=== PATIENT | male | born 1950 | race Two or more races ===

== ENCOUNTER 2018-07-25 00:44 | Inpatient (IN) | payer MEDICARE, OTHER ==
[~2018-07-25] VITALS: Ht 167.6 cm; Wt 54.4 kg
--- NOTE | 2018-07-25 02:53 | NUR ---
GPS ADMISSION NOTE, [facility]. PATIENT ARRIVED ON THIS UNIT AT 0253 VIA STRETCHER WITH 2 EMT ESCORTS. PATIENT ADMITTED ON A 5150 HOLD FOR GD. PER HOLD PATIENT WAS IN E.R. WAITING ROOM REFUSING TO SPEAK AND REFUSING MEDICAL TREATMENT. PATIENT PRESENTS WITH PARANOIA AND DELUSIONS. PATIENT CAN NOT GIVE VIABLE PLAN FOR SELF CARE AT THIS TIME. THE 5150 WAS REVIEWED AND THE DOCUMENTATION IN THE 5150 HOLD APPEARS TO REFLECT THE PRESENTATION OF THE PATIENT. UPON FACE TO FACE ASSESSMENT PATIENT IS CURRENTLY LYING IN BED AWAKE, PATIENT HAS A COMPLAINT OF BILATERAL HEEL PAIN AT 2 OUT OF 10 ON THE PAIN SCALE. PATIENT IS TAKING ORAL PAIN MEDICATION FOR THIS PAIN. PATIENT IS DISPLAYING NO S/S OF APPARENT DISTRESS. PATIENT BREATHING IS UNLABORED WITH EQUAL RISE AND FALL OF THE CHEST. PATIENT IS ALERT AND ORIENTATED X 3 ON ROOM AIR. PATIENT ASSISTED WITH TURING AND REPOSITIONING Q2HR AND PRN FOR COMFORT AND CIRCULATION. PATIENT HAS NO NEEDS AT THIS TIME. PATIENT IS NOTED TO BEING DEPRESSED, DISHEVELED, DISORGANIZED, ANXIOUS, COOPERATIVE, AND NEEDS REDIRECTION. PATIENT DENIES SUICIDE IDEATIONS AND HOMICIDAL IDEATIONS AT THIS TIME. PATIENT IS UNDER THE PSYCHIATRIC CARE OF DR. BURT AND THE MEDICAL CARE OF DR DIAZ. PATIENT BELONGINGS WERE INVENTORIED AND CHECKED FOR CONTRABAND. ALL CONTRABAND REMOVED AND STORED IN PATIENT HALLWAY LOCKER. PATIENT ADVANCED DIRECTIVES PREFERENCE, IMMUNIZATIONS QUESTIONER, NECESSARY PAPERWORK, AND SKIN ASSESSMENT COMPLETED. PATIENT ORIENTATED TO ROOM, FLOOR, AND STAFF WITH ALL QUESTIONS ANSWERED. PATIENT EDUCATED ON THE USE OF THE CALL PICKETT. PATIENT BED SIDE RAILS ARE UP X 2 FOR SAFETY. PATIENT BED IS LOCKED, LOW AND I WILL CONTINUE TO MONITOR THIS PATIENT Q 15 MIN WITH THE HELP OF STAFF TO MAINTAIN SAFETY.
[2018-07-25] MEDS ORDERED: MAG HYDROX/AL HYDROX/SIMETH 30 ML UDC PO PRN (03:00)
[2018-07-25] MEDS ORDERED: MAGNESIUM HYDROXIDE 30 ML UDC PO PRN (03:00)
[2018-07-25] MEDS ORDERED: PREG50CA PO (03:40)
[2018-07-25] MEDS ORDERED: THYR60TA2 PO (03:40)
[2018-07-25] MEDS ORDERED: METF-442 PO (05:55)
[2018-07-25 08:00] VITALS: BP 139/74
[2018-07-25] MEDS ORDERED: LORAZEPAM 0.5 MG TABLET PO PRN (09:00)
[2018-07-25] MEDS: NICOTINE PATCH (21MG) 21 MG PATCH.TD24 TD SCH (09:13)
[2018-07-25] MEDS: METFORMIN 500 MG TABLET PO SCH ×2 (11:21→16:53)
[2018-07-25] MEDS: SERTRALINE HCL 25 MG TABLET PO SCH (11:30)
[2018-07-25] MEDS: THYROID 30 MG TABLET PO SCH (11:30)
[2018-07-25] MEDS: PREGABALIN 25 MG CAPSULE PO SCH ×2 (12:39→16:53)
[2018-07-25 16:00] VITALS: BP 144/81
--- NOTE | 2018-07-25 16:15 | NUR ---
Initial Discharge Plan: Pt states that he resides with his girlfriend on his brother, Omer Donnelly'ray (phone number not available) property located at [address] [place] [address]; ([phone]). Per pt, he is not sure about his discharge plan. SW will work with the pt and the MD regarding appropriate discharge planning. SW will form a safe and proper discharge.
--- NOTE | 2018-07-25 16:15 | NUR ---
SW called the pt's brother, Omer Donnelly ([phone]), and the phone number was not valid.
[2018-07-25 20:00] VITALS: BP 132/79
--- NOTE | 2018-07-25 20:00 | NUR ---
GPS/RN OPENING NOTES RECEIVED PATIENT IN BED, RESTING COMFORTABLY I BED, OBSERVE NO GUARDING OR GRIMACE, NO PAIN VERBALIZED OR REPORTED, RESPIRATIONS EVEN AND UNLABORED. WILL MONITOR AND ATTEND TO NEEDS AT ALL TIMES. BED IN LOCK POSITION. SIDE RAILS 2X UP.
[2018-07-25 20:09] VITALS: BP 132/79
[2018-07-25] MEDS: OLANZAPINE 2.5 MG TABLET PO SCH (21:30)
--- NOTE | 2018-07-25 21:37 | NUR ---
GPS/RN NOTES PATIENT ASLEEP AND REFUSE TO TAKE MEDS AT THIS TIME .
[2018-07-26] MEDS ORDERED: DEXTROSE 50%-WATER 50 ML DISP.SYRIN IV PRN (00:30)
[2018-07-26] MEDS: ACETAMINOPHEN 325 MG TABLET PO PRN (06:25)
--- NOTE | 2018-07-26 06:28 | NUR ---
GPS/RN NOTES PATIENT AWAKE AND REPORTED TO HAVE PAIN IN LEGS, REPORTED HE HAS DIABETIC NEUROPATHY. INFORM HE HAS TYLENOL 650MG TO RELIEVE PAIN AND AGREED TO HAVE IT, WILL INFORM AM FOR CONCERN.
[2018-07-26 07:13] LABS: BASOPHILS % (AUTO) 0.3 % (0.0-2.0); EOSINOPHILS % (AUTO) 2.2 % (0.0-6.0); HEMATOCRIT 44 % (39-51); HEMOGLOBIN 14.2 g/dL (13.5-17.5); LYMPHOCYTES # (AUTO) 3.5 /CMM (0.8-4.8); MEAN CORPUSCULAR HEMOGLOBIN 30 PG (26.0-33.0); MEAN CORPUSCULAR HGB CONC 32 g/dl (31.0-36.0); MEAN CORPUSCULAR VOLUME 94 fL (80-96); MONOCYTES # (AUTO) 0.8 /CMM (0.1-1.30); MONOCYTES % (AUTO) 8.5 % (2.0-12.0); NEUTROPHILS # (AUTO) 5.1 /CMM (1.8-8.9); PLATELET COUNT (AUTO) 222 /CMM (150-450); RDW COEFFICIENT OF VARIATION 13.1 (11.5-15.0); RED BLOOD CELL COUNT(AUTO) 4.72 MIL/uL (4.5-6.0); WHITE BLOOD COUNT (AUTO) 9.6 K/uL (4.3-11.0)
[2018-07-26 07:38] LABS: CALCIUM, SERUM 8.6 mg/dL (8.5-10.1); CREATININE 0.9 mg/dL (0.6-1.3); MAGNESIUM 1.7 mg/dL (1.8-2.4); PHOSPHORUS 2.9 mg/dL (2.5-4.9)
[2018-07-26 07:42] LABS: CHOLESTEROL 226 mg/dL (<200); HDL CHOLESTEROL 57 mg/dL (40-60); LDL 159 mg/dL (0-99); TRIGLYCERIDES 102 mg/dL (30-150)
[2018-07-26] MEDS: BLOOD SUGAR DIAGNOSTIC 1 EACH STRIP IN SCH ×4 (07:57→22:02)
--- NOTE | 2018-07-26 07:57 | NUR ---
RN NOTE: ACCUCHECK AT 142. PATIENT REFUSED INSULIN
[2018-07-26 08:00] VITALS: BP 118/75
[2018-07-26] MEDS: NICOTINE PATCH (21MG) 21 MG PATCH.TD24 TD SCH (09:00)
[2018-07-26] MEDS: PREGABALIN 25 MG CAPSULE PO SCH ×3 (09:01→17:02)
[2018-07-26] MEDS: THYROID 30 MG TABLET PO SCH (09:01)
[2018-07-26] MEDS: METFORMIN 500 MG TABLET PO SCH ×2 (09:01→17:02)
[2018-07-26] MEDS: ATORVASTATIN 10 MG TABLET PO SCH (09:01)
[2018-07-26] MEDS: SERTRALINE HCL 25 MG TABLET PO SCH (09:01)
[2018-07-26] MEDS ORDERED: MAGNESIUM OXIDE 400 MG TABLET PO ONE (10:00)
--- NOTE | 2018-07-26 10:24 | NUR ---
RN-CO: DR ERAZO (ATM MECHANIC) MADE AWARE OF ATM MECHANIC CONSULT.
[2018-07-26 16:00] VITALS: BP 125/70
[2018-07-26 20:00] VITALS: BP 118/70
[2018-07-26] MEDS: OLANZAPINE 2.5 MG TABLET PO SCH (22:02)
[2018-07-27 08:00] VITALS: BP 128/77
[2018-07-27] MEDS: PREGABALIN 25 MG CAPSULE PO SCH ×3 (08:51→17:08)
[2018-07-27] MEDS: NICOTINE PATCH (21MG) 21 MG PATCH.TD24 TD SCH (08:51)
[2018-07-27] MEDS: BLOOD SUGAR DIAGNOSTIC 1 EACH STRIP IN SCH ×4 (08:51→22:16)
[2018-07-27] MEDS: THYROID 30 MG TABLET PO SCH (08:52)
[2018-07-27] MEDS: METFORMIN 500 MG TABLET PO SCH ×2 (08:52→17:08)
[2018-07-27] MEDS: SERTRALINE HCL 25 MG TABLET PO SCH (08:52)
--- NOTE | 2018-07-27 09:02 | NUR ---
GPS/RN PT TOOK AM MEDS REFUSED INSULIN COVERAGE
--- NOTE | 2018-07-27 14:53 | NUR ---
KELI called the pt's girlfriend, Umberto ([phone]), and informed her that the pt will be discharged by Monday according to the hearing swimming coach due to an appointment that he has for surgery. It was also discussed that the pt will be discharging with home health.
--- NOTE | 2018-07-27 14:58 | NUR ---
KELI called the pt's brother, Omer ([phone]), and clarified some details of the situation regarding the pt. The brother stated that the pt is being evicted from his property and was given a 30 Day Notice and that he is not willing to be involved in the discharge planning.
[2018-07-27 16:00] VITALS: BP 123/76
[2018-07-27] MEDS: ATORVASTATIN 10 MG TABLET PO SCH (21:40)
[2018-07-27] MEDS: OLANZAPINE 2.5 MG TABLET PO SCH (21:40)
[2018-07-27] MEDS: ACETAMINOPHEN 325 MG TABLET PO PRN (22:13)
[2018-07-27] MEDS: TEMAZEPAM 7.5 MG CAPSULE PO PRN (22:55)
[2018-07-28 00:42] VITALS: BP 143/82
[2018-07-28 08:00] VITALS: BP 175/84
[2018-07-28] MEDS: BLOOD SUGAR DIAGNOSTIC 1 EACH STRIP IN SCH ×4 (08:03→21:16)
[2018-07-28] MEDS: METFORMIN 500 MG TABLET PO SCH ×2 (08:55→17:21)
[2018-07-28] MEDS: NICOTINE PATCH (21MG) 21 MG PATCH.TD24 TD SCH ×2 (08:56→09:00)
[2018-07-28] MEDS: THYROID 30 MG TABLET PO SCH (08:56)
[2018-07-28] MEDS: SERTRALINE HCL 25 MG TABLET PO SCH (08:56)
[2018-07-28] MEDS: PREGABALIN 25 MG CAPSULE PO SCH ×3 (08:56→17:21)
--- NOTE | 2018-07-28 14:30 | NUR ---
EARLIER IN DAY PT. BECAME VERY ANXIOUS AND INSISTED VALUABLE ENVELOPE BE REMOVED FROM SAFE AND ALL MONIES REVIEWED WITH DISTRICT HOME ECONOMICS AGENT-THEN NEW ENVELOPE RETURNED TO SAFE.PT. COOPERATIVE AND CALMER AFTER THIS DONE.
[2018-07-28 16:00] VITALS: BP 118/88
[2018-07-28] MEDS: ACETAMINOPHEN 325 MG TABLET PO PRN ×2 (17:21→20:00)
--- NOTE | 2018-07-28 17:21 | NUR ---
GIVEN TYLENOL 650 MG PO FOR LT. FOOT PAIN.MEPILEX PATCH TO LT. HEEL.
[2018-07-28] MEDS: FIXODENT 1 EA TUBE MM PRN (17:48)
[2018-07-28 20:00] VITALS: BP 134/75
[2018-07-28] MEDS: TEMAZEPAM 7.5 MG CAPSULE PO PRN ×2 (20:29→21:19)
[2018-07-28] MEDS: ATORVASTATIN 10 MG TABLET PO SCH (21:16)
[2018-07-28] MEDS: OLANZAPINE 2.5 MG TABLET PO SCH (21:18)
--- NOTE | 2018-07-28 21:20 | NUR ---
ACCUCHECK 126 MG/DL, NO INSULIN DUE AT THIS TIME.
--- NOTE | 2018-07-28 21:21 | NUR ---
TEMAZEPAM 7.5 MG CAP 1 PO GIVEN FOR SLEEP PER PATIENT'S REQUEST
--- NOTE | 2018-07-28 21:43 | NUR ---
PATIENT C/O PAIN ON THE LEFT FOOT, TYLENOL IS NOT EFFECTIVE.AGED AND SPOKE TO DENTAL LABORATORY TECHNICIAN APPRENTICE RUPERT KOEHLER, NEW ORDER GIVEN FOR NORCO 5/325 MG TAB 1 PO Q 4 H PRN PAIN
[2018-07-28] MEDS ORDERED: HYDROCODONE/APAP 5/325MG 1 EACH TABLET PO PRN (22:00)
[2018-07-29] MEDS ORDERED: HYDROCODONE/APAP 5/325MG 1 EACH TABLET PO PRN (01:00)
--- NOTE | 2018-07-29 07:29 | NUR ---
BGL.170, REFUSED COVERAGE. EDUCATED R/T BGL MAINTENANCE, PT REMAINS REFUSING.
[2018-07-29] MEDS: BLOOD SUGAR DIAGNOSTIC 1 EACH STRIP IN SCH ×4 (07:39→21:38)
[2018-07-29 08:00] VITALS: BP 138/80
[2018-07-29] MEDS: THYROID 30 MG TABLET PO SCH (08:05)
[2018-07-29] MEDS: SERTRALINE HCL 25 MG TABLET PO SCH (08:06)
[2018-07-29] MEDS: PREGABALIN 25 MG CAPSULE PO SCH ×3 (08:06→16:30)
[2018-07-29] MEDS: ACETAMINOPHEN 325 MG TABLET PO PRN (08:06)
[2018-07-29] MEDS: NICOTINE PATCH (21MG) 21 MG PATCH.TD24 TD SCH (08:07)
[2018-07-29] MEDS: METFORMIN 500 MG TABLET PO SCH ×2 (08:10→16:30)
[2018-07-29] MEDS: FIXODENT 1 EA TUBE MM PRN (10:09)
[2018-07-29 16:00] VITALS: BP 139/86
[2018-07-29 20:34] VITALS: BP 143/76
[2018-07-29] MEDS: TEMAZEPAM 7.5 MG CAPSULE PO PRN (21:31)
[2018-07-29] MEDS: ATORVASTATIN 10 MG TABLET PO SCH (21:31)
[2018-07-29] MEDS: OLANZAPINE 2.5 MG TABLET PO SCH (21:31)
--- NOTE | 2018-07-29 21:31 | NUR ---
PRN RESTORIL GIVEN PATIENT REQUESTED TO GET RESTORIL FOR SLEEPLESSNESS, PRN RESTORIL GIVEN & WILL REASSESS FOR EFFECTIVENESS.
--- NOTE | 2018-07-29 22:37 | NUR ---
GPS RN NOTE PATIENT HAD RESTORIL REQUESTED BUT STILL AWAKE IN BED, STATED HE IS TRYING TO GO TO SLEEP. WILL MONITOR CLOSELY.
[2018-07-30] MEDS: ACETAMINOPHEN 325 MG TABLET PO PRN (03:36)
--- NOTE | 2018-07-30 03:44 | NUR ---
PRN TYLENOL GIVEN PATIENT HAD C/O MILD PAIN TO LEFT FOOT & WANTED TO TAKE TYLENOL. PRN TYLENOL GIVEN & WILL MONITOR FOR EFFECTIVENESS.
[2018-07-30] MEDS: BLOOD SUGAR DIAGNOSTIC 1 EACH STRIP IN SCH ×2 (07:30→12:00)
[2018-07-30 08:00] VITALS: BP 148/76
[2018-07-30] MEDS: PREGABALIN 25 MG CAPSULE PO SCH ×2 (08:51→12:08)
[2018-07-30] MEDS: METFORMIN 500 MG TABLET PO SCH ×2 (08:51→09:15)
[2018-07-30] MEDS: SERTRALINE HCL 25 MG TABLET PO SCH ×2 (08:52→09:15)
[2018-07-30] MEDS: NICOTINE PATCH (21MG) 21 MG PATCH.TD24 TD SCH (08:52)
[2018-07-30] MEDS: THYROID 30 MG TABLET PO SCH ×2 (08:52→09:15)
--- NOTE | 2018-07-30 09:22 | NUR ---
KELI called the [facility] Liaison, Julita ([phone]), and was transferred to her supervisor gas meter repair Shellie ([phone]).
--- NOTE | 2018-07-30 09:23 | NUR ---
KELI called Shellie ([phone]) from [facility] to arrange transportation and she stated that she would call the SW back with the information of the transport.
--- NOTE | 2018-07-30 09:24 | NUR ---
SW called the pt's girlfriend, Umberto ([phone]), and informed her that the SW is trying to arrange transportation for the discharge through [facility] and that she would call her back when there is an update.
--- NOTE | 2018-07-30 11:14 | NUR ---
Shellie ([phone]) from [facility] called to inform the that the pt will be picked up around 1pm.
--- NOTE | 2018-07-30 11:22 | NUR ---
KELI called the pt's girlfriend, Umberto ([phone]), and informed her that the pt is going to be picked up from this facility around 1pm.
--- NOTE | 2018-07-30 13:20 | NUR ---
GPS CHILD ABUSE WORKER NOTE: PT DISCHARGE HOME TO [address], [place] [address] ,PT IN STABLE CONDITION NO S/S DISTRESS NOTED. PT COMPLIANT WITH MEDICATIONS AND TX DENIES SI/HI. DENIES PAIN ANY DISCOMFORT. EXIT CARE DONE PRINTED ,SIGN . PRESCRIPTION EXPLAIN GIVEN TO PT, PT VERBALIZED UNDERSTANDING . ALL BELONGINGS RETURNED TO PT. MD AWARE AGREE FOR DISCHARGE. SKIN CHECKED PICTURE PLACED IN THE CHART.
--- NOTE | 2018-07-30 14:35 | NUR ---
Discharge Note: Pt was discharged home to [address], [place] [address]; ([phone]). Pts girlfriend, Umberto ([phone]), was aware of this discharge and agreed to it as well as the patient. Shellie Munoz ([phone]) from [facility] arranged the transportation for the pt to be picked up at 1pm. Upon discharge, the pt appeared to be in a euthymic mood with an anxious affect. The pt stated that he is really content about going back home and did not want to wait longer. Pt was provided with smoking cessation referrals upon discharge due to him stating that he just wanted to smoke once he is discharged. Pt was referred to be under the care of psychiatrist, Dr. Campbell, located at [address], [place] [address]; and was referred to be under the care of portable machine cutter, Dr. Aragon, located at [address], [address], [place] [address]; . Smoking Cessation Referrals: [facility] 800-LUNGUSA [facility] [phone]
== END 2018-07-30 13:20 | disposition home or self-care (01) | DRG 885 ==
LOC: GPS 02:12
PROVIDERS: ADMIT Psychiatry & Neurology Psychosomatic Medicine; ATTEND Psychiatry & Neurology Psychosomatic Medicine
DX: F33.3 Major depressive disorder, recurrent, severe with psychotic symptoms (principal); F29 Unspecified psychosis not due to a substance or known physiological condition; E11.9 Type 2 diabetes mellitus without complications; E03.9 Hypothyroidism, unspecified; E78.5 Hyperlipidemia, unspecified; I10 Essential (primary) hypertension; Z73.6 Limitation of activities due to disability; Z87.891 Personal history of nicotine dependence
CPT/HCPCS: 36415; 70450-TC; 80048-TC; 80061-TC; 82962-TC; 83735-TC; 84100-TC; 85025-TC; 87081-TC